=== PATIENT | female | born 1980 | race Caucasian/White ===

== ENCOUNTER 2022-08-29 14:48 | Outpatient (CLI) | payer BC | END 2022-08-29 14:49 | disposition home or self-care (01) | LOC: CSHMRI 14:48 | PROVIDERS: ATTEND Orthopaedic Surgery Hand Surgery | DX: M72.0 Palmar fascial fibromatosis [Dupuytren] (principal); S56.119A Strain of flexor muscle, fascia and tendon of finger of unspecified finger at forearm level, initial encounter; M20.099 Other deformity of finger(s), unspecified finger(s); M77.9 Enthesopathy, unspecified; M67.90 Unspecified disorder of synovium and tendon, unspecified site ==